=== PATIENT | female | born 1995 | race African-American/Black ===

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

== ENCOUNTER 2017-06-29 23:10 | Emergency (ER) | payer OTHER, MEDICAID ==
--- NOTE | 2017-06-30 00:07 | RADIOLOGY REPORT (SQ) ---
EXAM DESCRIPTION: CHEST PA/LAT COMPLETED DATE/TIME: 06/29/2017 11:50 pm REASON FOR STUDY: chest pain COMPARISON: None. EXAM PARAMETERS: NUMBER OF VIEWS: two views TECHNIQUE: Digital Frontal and Lateral radiographic views of the chest acquired. RADIATION DOSE: NA LIMITATIONS: none FINDINGS: LUNGS AND PLEURA: No opacities, masses or pneumothorax. No pleural effusion. MEDIASTINUM AND HILAR STRUCTURES: No masses or contour abnormalities. HEART AND VASCULAR STRUCTURES: Heart normal size. No evidence for failure. BONES: No acute findings. HARDWARE: None in the chest. OTHER: No other significant finding. IMPRESSION: NO SIGNIFICANT RADIOGRAPHIC FINDING IN THE CHEST. TECHNICAL DOCUMENTATION: JOB ID: [id number] [employer]- All Rights Reserved
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
[2017-06-30] MEDS ORDERED: LORAZEPAM 1 MG TABLET PO ONE (01:20)
[2017-06-30 08:44] VITALS: BP 132/76
--- NOTE | 2017-06-30 16:55 | EKG REPORT ---
SEVERITY:- BORDERLINE ECG - SINUS RHYTHM BORDERLINE Q WAVES IN INFERIOR LEADS INFERIOR Q WAVES, PROBABLY NORMAL VARIATION : Confirmed by: Liya Hwang MD 30-Jun-2017 16:55:13
== END 2017-06-30 08:44 | disposition home or self-care (01) ==
LOC: EEVIPCON 23:10 → ER 23:10
DX: F41.9 Anxiety disorder, unspecified (principal); R07.89 Other chest pain; F32.9 Major depressive disorder, single episode, unspecified; J45.909 Unspecified asthma, uncomplicated; Z88.0 Allergy status to penicillin
CPT/HCPCS: 71020; 93005; 93010; 99284

== ENCOUNTER 2017-09-24 07:16 | Emergency (ER) | payer OTHER, MEDICAID ==
[2017-09-24] MEDS ORDERED: IBUPROFEN 800 MG TABLET PO ONE (07:48)
--- NOTE | 2017-09-24 07:48 | ER Document Report ---
HPI - HPI Patient complains to provider of: Sore throat head congestion wheezing Onset: Other - Several days Onset/Duration: Gradual Quality of pain: Achy Pain Level: 5 Context: 22-year-old non-smoker female with runny nose for a week and a half but did not become congested until a few days ago. Her throat was scratchy and Saturday in now sore. She has posterior neck soreness body aches. Occasional congested cough. She works at [employer] in [place]. Associated Symptoms: None Exacerbated by: Denies Relieved by: Denies Similar symptoms previously: No Recently seen / treated by doctor: No - ROS ROS below otherwise negative: Yes Systems Reviewed and Negative: Yes All other systems reviewed and negative - REPRODUCTIVE Reproductive: REPORTS: : Past Medical History - General Information source: Patient - Social History Smoking Status: Never Smoker Frequency of alcohol use: None Drug Abuse: None Lives with: Family Family History: Reviewed & Not Pertinent Pulmonary Medical History: Reports: Hx Asthma - Exercise-induced as a child Renal/ Medical History: Denies: Hx Peritoneal Dialysis Musculoskeltal Medical History: Reports Hx Arthritis Surgical Hx: Negative Past Surgical History: Reports: Hx Oral Surgery - wisdom teeth - Immunizations Immunizations up to date: Yes Hx Diphtheria, Pertussis, Tetanus Vaccination: Yes Vertical Provider Document - CONSTITUTIONAL Agree With Documented VS: Yes Exam Limitations: No Limitations General Appearance: No Apparent Distress - INFECTION CONTROL TRAVEL OUTSIDE OF THE [place] IN LAST 30 DAYS: No - HEENT HEENT: Normocephalic. negative: Conjuctival Injection, Pharyngeal Erythema, Tympanic Membrane Red Notes: Boggy naris, no postnasal drip, sinus nontender - NECK Neck: Supple. negative: Lymphadenopathy-Left, Lymphadenopathy-Right - RESPIRATORY Respiratory: Breath Sounds Normal, No Respiratory Distress O2 Sat by Pulse Oximetry: 97 - CARDIOVASCULAR Cardiovascular: Regular Rate, Regular Rhythm - GI/ABDOMEN Gastrointestinal: Abdomen Soft, Abdomen Non-Tender, No Organomegaly - MUSCULOSKELETAL/EXTREMETIES Musculoskeletal/Extremeties: NIKA PEREZ - NEURO Level of Consciousness: Awake, Alert, Appropriate - DERM Integumentary: Warm, Dry, No Rash Course - Vital Signs Vital signs: Temp Pulse Resp BP Pulse Ox 98.1 F 106 H 18 147/78 H 97 09/24/17 07:22 09/24/17 07:22 09/24/17 07:22 09/24/17 07:22 09/24/17 07:22 Discharge - Discharge Clinical Impression: Upper respiratory infection Condition: Good Disposition: HOME, SELF-CARE Instructions: Acetaminophen, Upper Respiratory Illness ([facility]), Use of Over-The- Counter Ibuprofen ([facility]) Additional Instructions: Rest Plenty of fluids Tylenol Motrin See if symptoms worsen or return to the emergency room Forms: Return to Work
[2017-09-24 08:08] VITALS: BP 141/74
== END 2017-09-24 08:11 | disposition home or self-care (01) ==
LOC: ER 07:16
DX: J06.9 Acute upper respiratory infection, unspecified (principal); R68.89 Other general symptoms and signs; M79.1 Myalgia
CPT/HCPCS: 99282

== ENCOUNTER 2017-12-30 13:29 | Emergency (ER) | payer MEDICAID, OTHER ==
--- NOTE | 2017-12-30 14:58 | ER Document Report ---
ED General - General Chief Complaint: Ankle Injury Stated Complaint: SWOLLEN ANKLE Time Seen by Provider: 12/30/17 14:47 Mode of Arrival: Ambulatory Information source: Patient Notes: Patient is a 22 year old otherwise healthy female who presents with left ankle pain that started 2 weeks ago while playing kickball. She states initially it was only painful occasionally but now it hurts with ambulation. Denies swelling , redness, warmth, bruising. She has been taking tylenol/ibuprofen without improvement. TRAVEL OUTSIDE OF THE [place] IN LAST 30 DAYS: No - Related Data Allergies/Adverse Reactions: amoxicillin Allergy (Intermediate, Verified 12/30/17 15:17) Pruritis Past Medical History - General Information source: Patient - Social History Smoking Status: Unknown if Ever Smoked Family History: Reviewed & Not Pertinent Pulmonary Medical History: Reports: Hx Asthma - Exercise-induced as a child Renal/ Medical History: Denies: Hx Peritoneal Dialysis Musculoskeltal Medical History: Reports Hx Arthritis Past Surgical History: Reports: Hx Oral Surgery - wisdom teeth - Immunizations Immunizations up to date: Yes Hx Diphtheria, Pertussis, Tetanus Vaccination: Yes Review of Systems - Review of Systems Constitutional: See HPI EENT: No symptoms reported Cardiovascular: No symptoms reported Respiratory: No symptoms reported Gastrointestinal: No symptoms reported Genitourinary: No symptoms reported Female Genitourinary: No symptoms reported Musculoskeletal: See HPI Skin: No symptoms reported Hematologic/Lymphatic: No symptoms reported Neurological/Psychological: No symptoms reported Physical Exam - Vital signs Vitals: Temp Pulse Resp BP Pulse Ox 98.2 F 83 18 145/84 H 100 12/30/17 13:41 12/30/17 13:41 12/30/17 13:41 12/30/17 13:41 12/30/17 13:41 - Notes Notes: PHYSICAL EXAM: CONSTITUTIONAL: Alert and oriented, well-appearing and in no acute distress. HENT: Normocephalic, atraumatic. Trachea midline. Uvula midline. Moist mucous membranes. EYES: Pupils equal round and reactive to light, EOM intact. Sclera anicteric, conjunctiva are normal. No entrapment. NECK: supple without lymphadenopathy. No midline tenderness or paraspinous muscle spasms. No step-offs or deformities. ROM intact. HEART: Regular rate and rhythm without murmurs. LUNGS: CTAB and equal. No wheezes, rales or rhonchi. EXTREMITIES: TTP to b/l malleoli to left ankle without erythema, edema, ecchymosis or deformity. Normal range of motion, no pitting edema. No cyanosis. Cap Refill <3 seconds. NEURO: Cranial nerves grossly intact. Normal sensory/motor exams. PSYCH: Normal mood, normal affect. SKIN: Warm and dry. Normal turgor. No rashes or lesions noted. Course - Re-evaluation Re-evalutation: 12/30/17 14:58 Patient seen and examined. Well hydrated, well appearing, speaking in full sentences. VSS. No obvious deformity. neurovascular intact. No evidence of septic joint, gout. Will obtain xray. 12/30/17 16:33 Reviewed imaging and radiologist results - negative for acute findings. Discussed results with patient, will give SHAWN wrap/crutches for comfort and treat with NSAIDs. Follow-up with orthopedics recommended. At this time, will discharge with return precautions and follow-up recommendations. Verbal discharge instructions given at the bedside and opportunity for questions given. Medication warnings reviewed. Patient is in agreement with this plan and has verbalized understanding of return precautions and the need for primary care follow-up in the next 24-72 hours. - Vital Signs Vital signs: Temp Pulse Resp BP Pulse Ox 98.6 F 73 16 124/88 H 99 12/30/17 16:44 12/30/17 16:44 12/30/17 16:44 12/30/17 16:44 12/30/17 16:44 - Diagnostic Test Radiology reviewed: Image reviewed, Reports reviewed Discharge - Discharge Clinical Impression: Left ankle sprain Qualifiers: Encounter type: initial encounter Involved ligament of ankle: other ligament Qualified Code(s): S93.492A - Sprain of other ligament of left ankle, initial encounter Condition: Stable Disposition: HOME, SELF-CARE Additional Instructions: SPRAIN: Your injury is a sprain. A sprain results from stretching or tearing of the ligaments, usually from a twisting injury. The ligaments will require time and protection in order to heal properly. Many sprains are quite disabling and should be taken seriously. The usual initial treatment of sprains is cold packs, elevation, and rest of the injured area. Your physician has assessed the seriousness of your ligament injury, and has outlined a treatment plan. Understand that this treatment may change, depending on how you progress. If a re-examination was recommended, it is important that you follow up as instructed. Call the doctor any time if there is severe pain, numbness, or loss of function in the injured area. SHAWN WRAP: A compression dressing (shawn wrap) has been placed. This helps hold the area still. It limits swelling and internal bleeding. The wrap should be comfortably snug -- not tight. You should feel a sense of pressure, but not severe pain under the wrap. Unless the physician tells you otherwise, you can adjust the wrap for comfort. If the wrap causes symptoms suggesting it's too tight -- uncomfortable pressure, swelling or discoloration beyond the wrap, numbness, or severe pain - - you must loosen the wrap. If these symptoms don't resolve promptly, return for re-evaluation. SPRAINED ANKLE: Your sprained ankle results from stretching or tearing of the ligaments which support the ankle. This usually results from twisting the foot inward and under. The ligaments will require time and protection in order to heal properly. Many ankle sprains are quite disabling, and should be taken seriously. The usual treatment for an ankle sprain is cold packs; protection with tape , splints, or wraps; elevation; and staying off the ankle for at least a day. As the ankle improves, you can walk IF it's not painful to bear weight. Sports are best postponed until healing is complete. More serious sprains usually require strengthening exercises after early healing. Your physician has assessed the seriousness of the ligament injury to your ankle. However, the treatment may change, depending on how your ankle progresses. If further exams were recommended, it is important that you follow through. Call the doctor if your foot becomes numb, painful, or severely swollen. USE OF CRUTCHES: The doctor has recommended that you not bear weight at this time. You will need to use crutches. Adjust the crutches so the tops come to about two inches under the armpit while you are standing upright. Use your hands -- not your armpits -- to support your weight. To get into a chair, support yourself with one crutch on the injured side. Hold the chair with the other hand, then lower yourself while putting all your weight on the good leg. Going up stairs is `good leg up, step up, then bring up crutches and bad leg.' Down stairs is `bad leg and crutches down, then bring good leg down.' If you develop numbness or swelling in an arm or hand, you are using the crutches incorrectly. Return if you are having any problems with the crutches. ICE & ELEVATION: Apply ice packs frequently against the painful area. Many different schedules are recommended, such as "20 minutes on, 20 minutes off" or "one hour ice, two hours rest." If you need to work, you may need to go longer between ice treatments. You should plan to have the area ice packed AT LEAST one- fourth of the time. The ice should be applied over the wrap, tape, or splint, or over a layer of cloth -- not directly against the skin. Some ice bags have a built-in cloth and can be put directly on the skin. Your injured part should be elevated as much as possible over the next 48 hours. Try to keep the injury above the level of the heart. Avoid use of the injured area. Elevation and rest will decrease the swelling. USE OF [id number] IBUPROFEN: Ibuprofen (Advil, Nuprin, Medipren, Motrin IB) is a medication for fever and pain control. In addition, it has anti- inflammatory effects which may be beneficial, especially in the treatment of injuries. It's best to take ibuprofen with food. Persons with ulcer disease or allergy to aspirin should notify their physician of this before taking ibuprofen. Ibuprofen can be given every four to six hours, for a total of four doses daily. Age Pain or fever dose Antiinflammatory dose 6-8 yr 200 mg (1 tab) 200 mg (1 tab) 9-11 yr 200 mg (1 tab) 200-400 mg (1-2 tab) 11-14 yr 200-400 mg (1-2 tab) 400 mg (2 tab) 15-adult 400 mg (2 tab) 600 mg (3 tab) FOLLOW-UP CARE: If you have been referred to a physician for follow-up care, call the physician s office for an appointment as you were instructed or within the next two days. If you experience worsening or a significant change in your symptoms, notify the physician immediately or return to the Emergency Department at any time for re-evaluation. Prescriptions: Naproxclaudia [Naprosyn 250 mg Tablet] 500 mg PO BID #14 tablet Forms: Elevated Blood Pressure
--- NOTE | 2017-12-30 16:32 | RADIOLOGY REPORT (SQ) ---
EXAM DESCRIPTION: ANKLE LEFT COMPLETE COMPLETED DATE/TIME: 12/30/2017 3:50 pm REASON FOR STUDY: ankle pain COMPARISON: None. NUMBER OF VIEWS: Three views. TECHNIQUE: AP, lateral, and oblique radiographic images acquired of the left ankle. LIMITATIONS: None. FINDINGS: MINERALIZATION: Normal. BONES: No acute fracture or dislocation. No worrisome bone lesions. JOINTS: Ankle mortise intact. SOFT TISSUES: No metallic foreign bodies. OTHER: No other significant finding. IMPRESSION: NEGATIVE STUDY OF THE LEFT ANKLE. NO RADIOGRAPHIC EVIDENCE OF ACUTE INJURY. TECHNICAL DOCUMENTATION: JOB ID: [id number] [employer]- All Rights Reserved Reading location - IP/workstation name: [email or web address]
[2017-12-30 16:44] VITALS: BP 124/88
== END 2017-12-30 16:43 | disposition home or self-care (01) ==
LOC: ER 13:29
DX: S93.402A Sprain of unspecified ligament of left ankle, initial encounter (principal); X50.1XXA Overexertion from prolonged static or awkward postures, initial encounter; Y93.6A Activity, physical games generally associated with school recess, summer camp and children; J45.909 Unspecified asthma, uncomplicated; Z88.0 Allergy status to penicillin
CPT/HCPCS: 99283

== ENCOUNTER 2018-12-12 20:16 | Emergency (ER) | payer MEDICAID ==
--- NOTE | 2018-12-12 20:19 | ER Document Report ---
ED Medical Screen (RME) - General Stated Complaint: FEVER,EPIGASTRIC PAIN,VOMITING Time Seen by Provider: 12/12/18 20:16 Mode of Arrival: Ambulatory Information source: Patient Notes: Patient is an otherwise healthy 23-year-old female who presents to the emergency department with fever, abdominal pain, nausea, vomiting, sore throat and body aches that started on Saturday. Patient states she did not take a flu shot. Patient denies any chronic medical illnesses. TRAVEL OUTSIDE OF THE [place] IN LAST 30 DAYS: No - Related Data Allergies/Adverse Reactions: amoxicillin Allergy (Intermediate, Verified 12/30/17 15:17) Pruritis Past Medical History Pulmonary Medical History: Reports: Hx Asthma - Exercise-induced as a child Renal/ Medical History: Denies: Hx Peritoneal Dialysis Musculoskeltal Medical History: Reports Hx Arthritis Past Surgical History: Reports: Hx Oral Surgery - wisdom teeth - Immunizations Immunizations up to date: Yes Hx Diphtheria, Pertussis, Tetanus Vaccination: Yes
[2018-12-12] MEDS ORDERED: ACETAMINOPHEN 325 MG TABLET PO ONE (20:32)
[2018-12-12 21:24] LABS: ABSOLUTE LYMPHOCYTES (AUTO) 1.6 10^3/uL (0.5-4.7); ABSOLUTE MONOCYTES (AUTO) 0.5 10^3/uL (0.1-1.4); ABSOLUTE NEUT (AUTO) 2.2 10^3/uL (1.7-8.2); BASOPHILS % (AUTO) 0.4 % (0-2); EOSINOPHILS % (AUTO) 0.2 % (0-6); HEMATOCRIT 38.1 % (36.0-47.0); HEMOGLOBIN 12.7 g/dL (12.0-15.5); LYMPHOCYTES % (AUTO) 37.2 % (13-45); MEAN CORPUSCULAR HEMOGLOBIN 27.1 pg (27.0-33.4); MEAN CORPUSCULAR HGB CONC 33.3 g/dL (32.0-36.0); MEAN CORPUSCULAR VOLUME 81 fl (80-97); PLATELET COUNT 226 10^3/uL (150-450); RED BLOOD COUNT 4.68 10^6/uL (3.72-5.28); RED CELL DISTRIBUTION WIDTH 13.8 % (11.5-14.0); SEGMENTED NEUTROPHILS % (AUTO) 51.2 % (42-78); TOTAL CELLS COUNTED % (AUTO) 100 %; WHITE BLOOD COUNT 4.3 10^3/uL (4.0-10.5)
[2018-12-12 21:29] LABS: APPEARANCE,URINE SLIGHTLY-CLOUDY; BILIRUBIN,URINE NEGATIVE (NEGATIVE); GLUCOSE, URINE NEGATIVE (NEGATIVE); KETONES,URINE NEGATIVE (NEGATIVE); PROTEIN,URINE 30 mg/dL (NEGATIVE); URINE SPECIFIC GRAVITY 1.025
[2018-12-12 21:30] LABS: LEUKOCYTE ESTERASE,URINE SMALL (NEGATIVE); NITRITE,URINE NEGATIVE (NEGATIVE)
[2018-12-12 21:32] LABS: COLOR,URINE YELLOW
[2018-12-12 21:39] LABS: ALANINE AMINOTRANSFERASE 44 U/L (9-52); ALBUMIN 4.2 g/dL (3.5-5.0); ALKALINE PHOSPHATASE 86 U/L (38-126); ANION GAP 12 (5-19); ASPARTATE AMINO TRANSFERASE 31 U/L (14-36); BILIRUBIN,DIRECT 0.1 mg/dL (0.0-0.4); BILIRUBIN,TOTAL 0.7 mg/dL (0.2-1.3); BLOOD UREA NITROGEN 9 mg/dL (7-20); CALCIUM 9.2 mg/dL (8.4-10.2); CARBON DIOXIDE 24 mmol/L (22-30); CHLORIDE 101 mmol/L (98-107); GLUCOSE 100 mg/dL (75-110); LIPASE 112.3 U/L (23-300); POTASSIUM 4.1 mmol/L (3.6-5.0)
[2018-12-12 21:41] LABS: A TYPE INFLUENZA AG NEGATIVE (NEGATIVE); B INFLUENZA AG NEGATIVE (NEGATIVE)
[2018-12-13] MEDS ORDERED: CEFTRIAXONE 1 GM/D5W RTU 1 GM/50 ML RTUPB IV ONE (01:20)
--- NOTE | 2018-12-13 01:56 | ER Document Report ---
ED General - General Chief Complaint: Vomiting Stated Complaint: FEVER,EPIGASTRIC PAIN,VOMITING Time Seen by Provider: 12/12/18 20:16 Mode of Arrival: Ambulatory Notes: Patient is a 23-year-old female presents with complaint of nausea and vomiting. No diarrhea. She said some fevers. Today she spiked fever again and continue to have some vomiting therefore came to the ER. Symptoms have been intermittently for a week. She said she will sometimes get some pain that feels like bilateral crampy pain in the abdomen. No bloody stools. Some mild dysuria. Patient says she does have possible folliculitis over the pelvic region from where she shaved and has some red bumps in the area. TRAVEL OUTSIDE OF THE [place] IN LAST 30 DAYS: No - Related Data Allergies/Adverse Reactions: amoxicillin Allergy (Intermediate, Verified 12/30/17 15:17) Pruritis Past Medical History - General Information source: Patient - Social History Smoking Status: Never Smoker Frequency of alcohol use: None Drug Abuse: None Family History: Reviewed & Not Pertinent Pulmonary Medical History: Reports: Hx Asthma - Exercise-induced as a child Renal/ Medical History: Denies: Hx Peritoneal Dialysis Musculoskeletal Medical History: Reports Hx Arthritis Past Surgical History: Reports: Hx Oral Surgery - wisdom teeth - Immunizations Immunizations up to date: Yes Hx Diphtheria, Pertussis, Tetanus Vaccination: Yes Review of Systems - Review of Systems Notes: My Normal Review Basic REVIEW OF SYSTEMS: CONSTITUTIONAL : Fever EENT: Denies eye, ear, throat, or mouth pain or symptoms. Denies nasal or sinus congestion. CARDIOVASCULAR: Denies chest pain. RESPIRATORY: Denies cough, cold, or chest congestion. Denies shortness of breath, difficulty breathing, or wheezing. GASTROINTESTINAL: Bilateral intermittent crampy abdominal pain. Recurrent vomiting. GENITOURINARY: Some dysuria FEMALE GENITOURINARY: Denies vaginal bleeding, abnormal or irregular periods. Has Implanon MUSCULOSKELETAL: Denies neck or back pain or joint pain or swelling. SKIN: Denies rash or skin lesions. NEUROLOGICAL: Denies altered mental status or loss of consciousness. Denies headache. Denies weakness or paralysis or loss of use of either side. Denies problems with gait or speech. Denies sensory or motor loss. ALL OTHER SYSTEMS REVIEWED AND NEGATIVE. Physical Exam - Vital signs Vitals: Temp Pulse Resp BP Pulse Ox 102.5 F H 121 H 16 135/67 H 100 12/12/18 20:27 12/12/18 20:27 12/12/18 20:27 12/12/18 20:27 12/12/18 20:27 - Notes Notes: General Appearance: Well nourished, alert, cooperative, no acute distress, no obvious discomfort. Vitals: reviewed, See vital signs table. Head: no swelling or tenderness to the head Eyes: PERRL, EOMI, Conjuctiva clear Mouth: No decreasd moisture Throat: No tonsillar inflammation, No airway obstruction, No lymphadenopathy Lungs: No wheezing, No rales, No rhonci, No accessory muscle use, good air exchange bilaterally. Heart: Normal rate, Regular rythm, No murmur, no rub Abdomen: Normal BS, soft, No rigidity, No abdominal tenderness to palpation, No guarding, no rebound, no abdominal masses, no organomegaly Extremities: strength 5/5 in all extremities, good pulses in all extremities, no swelling or tenderness in the extremities, no edema. Skin: warm, dry, appropriate color, no rash Neuro: speech clear, oriented x 3, normal affect, responds appropriately to questions. Course - Re-evaluation Re-evalutation: 12/13/18 02:32 Patient is feeling improved. Vital signs have normalized. She looks well. She has no reproducible pain to palpation of her abdomen. Laboratory evaluation is unremarkable. Urinalysis does show some white blood cells and some leukocyte esterase. She has had some dysuria and therefore we will go forward with placing her on antibiotic. She is not septic or toxic appearing. I feel she is safe to be discharged at this time. I do not feel that she needs any imaging of her abdomen as she has no reproducible pain to palpation of her abdomen. She has no focality to pain when it occurs. She describes the pain more as of an intermittent crampy pain that is on both sides of her abdomen. Patient does not have a primary care doctor and therefore informed her to return to the ER in 3 days for reevaluation if she still having any symptoms. I encouraged her return to ER immediately if she has fevers, recurrent abdominal pain, recurrent vomiting not responding to Zofran, or if she feels that she is worsening away. Patient agrees with plan and she will be discharged home. Dictation of this chart was performed using voice recognition software; therefore, there may be some unintended grammatical errors. - Vital Signs Vital signs: Temp Pulse Resp BP Pulse Ox 98.5 F 121 H 16 133/82 H 97 12/13/18 01:57 12/12/18 20:27 12/13/18 01:57 12/13/18 01:57 12/13/18 01:57 - Laboratory Result Diagrams: 12/12/18 21:09 12/12/18 21:09 Laboratory results interpreted by me: 12/12/18 21:09 Urine Protein 30 H Urine Blood LARGE H Urine Urobilinogen 4.0 H Ur Leukocyte Esterase SMALL H Discharge - Discharge Clinical Impression: Fever Qualifiers: Fever type: unspecified Qualified Code(s): R50.9 - Fever, unspecified Vomiting Qualifiers: Vomiting type: unspecified Vomiting Intractability: non-intractable Nausea presence: with nausea Qualified Code(s): R11.2 - Nausea with vomiting, unspecif ied UTI (urinary tract infection) Qualifiers: Urinary tract infection type: site unspecified Hematuria presence: with hemat uria Qualified Code(s): N39.0 - Urinary tract infection, site not specified; R31.9 - Hematuria, unspecified Condition: Good Disposition: HOME, SELF-CARE Additional Instructions: Your urinalysis does show some evidence of a urinary tract infection. This could be causing your vomiting and dysuria. We will cover you with an antibiotic and send the urine for culture. I will send you home with a m galindoication called Zofran. You can take this medication as 1 tablet dissolved in mouth every 4 hours as needed for vomiting. I will write a prescription for some more as well. If you are still having symptoms after 3 days please return to the ER so we can reevaluate you. Please return to ER immediately if you have recurrent abdominal pain, recurrent fevers, intractable vomiting despite Zofran, or if you feel that you are worsening in any way. Please eat bland food over the next 48 hours. Avoid fried foods, spicy foods, or fatty foods. Prescriptions: Cephalexin Monohydrate [Keflex 500 mg Capsule] 500 mg PO BID 5 Days #10 capsule Ondansetron [Zofran Odt 4 mg Tablet] 1 tab PO Q4H PRN #15 tab.rapdis PRN Reason: For Nausea/Vomiting
[2018-12-13] MEDS ORDERED: ONDANSETRON ODT 4 MG TAB (6 TAB/ER DISP) PO PRN (02:31)
[2018-12-13 03:02] VITALS: BP 127/56
== END 2018-12-13 03:08 | disposition home or self-care (01) ==
LOC: ER 20:16
DX: N39.0 Urinary tract infection, site not specified (principal); R50.9 Fever, unspecified; R31.9 Hematuria, unspecified; R11.2 Nausea with vomiting, unspecified; Z88.0 Allergy status to penicillin
CPT/HCPCS: 99284; 96365; 36415; 87086; 83690; 85025; 80053; 81001; 87804; J0696

== ENCOUNTER 2020-03-10 09:34 | Emergency (ER) | payer OTHER ==
[2020-03-10 09:43] VITALS: BP 155/83
--- NOTE | 2020-03-10 10:38 | ER Document Report ---
HPI - HPI Time Seen by Provider: 03/10/20 10:30 Pain Level: 4 Context: Patient is a 24-year-old female presents emergency department with a chief complaint of a possible wasp sting to her left medial cheek. Patient states that this happened about an hour prior to arrival while she was at work. Patient denies any shortness of breath or difficulty breathing. States that it is pruritic. Patient is currently breast-feeding. - REPRODUCTIVE LMP: Apr 2019 Reproductive: DENIES: : Past Medical History - General Information source: Patient - Social History Smoking Status: Never Smoker Chew tobacco use (# tins/day): No Frequency of alcohol use: None Drug Abuse: None Family History: Reviewed & Not Pertinent Patient has homicidal ideation: No Pulmonary Medical History: Reports: Hx Asthma - Exercise-induced as a child Renal/ Medical History: Denies: Hx Peritoneal Dialysis Musculoskeletal Medical History: Reports Hx Arthritis Past Surgical History: Reports: Hx Oral Surgery - wisdom teeth - Immunizations Immunizations up to date: Yes Hx Diphtheria, Pertussis, Tetanus Vaccination: Yes Vertical Provider Document - CONSTITUTIONAL Agree With Documented VS: Yes Exam Limitations: No Limitations General Appearance: No Apparent Distress - INFECTION CONTROL TRAVEL OUTSIDE OF THE [place] IN LAST 30 DAYS: No - HEENT HEENT: Atraumatic, Normocephalic, PERRLA Notes: Small amount of erythema where the possible wasp sting is. - NECK Neck: Normal Inspection - RESPIRATORY Respiratory: No Respiratory Distress - CARDIOVASCULAR Cardiovascular: Regular Rate, Regular Rhythm Pulses: Normal: Radial - MUSCULOSKELETAL/EXTREMETIES Musculoskeletal/Extremeties: FROM - NEURO Level of Consciousness: Awake, Alert, Appropriate - DERM Integumentary: Warm, Dry, Rash - see ENT exam Course - Re-evaluation Re-evalutation: 03/10/20 10:38 No cellulitis noted. Will start the patient on Benadryl and Pepcid to help with her symptoms. Respirations are even and unlabored. No acute distress noted. Follow-up precautions were given. Verbal discharge instructions were given to the patient. They verbalized understanding. They are stable for discharge. - Vital Signs Vital signs: Temp Pulse Resp BP Pulse Ox 99.1 F 86 16 155/83 H 98 03/10/20 09:42 03/10/20 09:42 03/10/20 09:42 03/10/20 09:42 03/10/20 09:42 Discharge - Discharge Clinical Impression: Insect sting Qualifiers: Encounter type: initial encounter Injury intent: accidental or unintentional Qualified Code(s): T63.481A - Toxic effect of venom of other arthropod, accidental (unintentional), initial encounter Condition: Stable Disposition: HOME, SELF-CARE Additional Instructions: You were seen today in the emergency department for an insect sting. Please take Benadryl 25 to 50 mg every 4-6 hours as needed for itchiness. For the first 24 hours, take this medication around the clock. Take Pepcid 20 mg twice a day. This will help with itchiness and with swelling. Prescriptions: Diphenhydramine HCl [Benadryl 25 mg Capsule] 1 cap PO Q4 PRN #1 pkg PRN Reason: Famotidine [Pepcid 20 mg Tablet] 20 mg PO BID #12 tablet Forms: Return to Work
== END 2020-03-10 10:45 | disposition home or self-care (01) ==
LOC: ER 09:34
DX: T63.481A Toxic effect of venom of other arthropod, accidental (unintentional), initial encounter (principal); L29.9 Pruritus, unspecified; J45.909 Unspecified asthma, uncomplicated
CPT/HCPCS: 99281